=== PATIENT | female | born 1975 | race Caucasian/White ===

== ENCOUNTER 2019-09-25 17:37 | Emergency (ER) | payer MEDICAID, OTHER ==
[~2019-09-25] VITALS: Ht 162.6 cm; Wt 96.4 kg
[2019-09-25 17:53] VITALS: BP 170/93
== END 2019-09-25 20:02 | disposition left against medical advice (07) ==
LOC: ED 19:50
DX: M79.89 Other specified soft tissue disorders (principal); Z53.21 Procedure and treatment not carried out due to patient leaving prior to being seen by health care provider